=== PATIENT | male | born 1950 | race Caucasian/White ===

== ENCOUNTER 2018-03-09 07:36 | Inpatient (IN) | payer OTHER ==
[~2018-03-09] VITALS: Ht 152.4 cm; Wt 5.0 kg
[2018-03-28] MEDS ORDERED: FORTAMET1000 MG (11:57)
[2018-03-28] MEDS ORDERED: DITROPAN XL10 MG (11:57)
[2018-03-28] MEDS ORDERED: FENOFIBRATE145 MG (11:57)
[2018-03-28] MEDS ORDERED: NEURONTIN800 MG (11:57)
[2018-03-28] MEDS ORDERED: GLIMEPIRIDE4 MG (11:57)
[2018-03-28] MEDS ORDERED: LOSARTAN-HCTZ1 EACH (11:58)
[2018-03-28] MEDS ORDERED: [UNRECOGNIZED DRUG - OTHER] PO (12:01)
[2018-04-04] MEDS ORDERED: MELOXICAM15 MG PO (18:06)
[2018-04-06] MEDS ORDERED: DUI500 PO (17:05)
[2018-04-06] MEDS ORDERED: PERCOCET 5-3251 EACH PO (17:05)
[2018-04-06] MEDS ORDERED: ELIQUIS2.5 MG PO (17:05)
== END 2018-04-06 18:33 | disposition home health service (06) | DRG 470 ==
LOC: SURG 04-04 05:49 → O/R 04-04 05:49 → SURH 04-04 07:00 → SURG 04-04 16:25
PROVIDERS: Orthopaedic Surgery
PROC: 0MNP0ZZ Release Left Knee Bursa and Ligament, Open Approach (ICD-10-PCS; 2018-04-04)
PROC: 0SRD0J9 Replacement of Left Knee Joint with Synthetic Substitute, Cemented, Open Approach (ICD-10-PCS; principal; 2018-04-04 13:00)
DX: M17.12 Unilateral primary osteoarthritis, left knee (principal); D62 Acute posthemorrhagic anemia; I10 Essential (primary) hypertension; E11.9 Type 2 diabetes mellitus without complications; E66.8 Other obesity; M81.0 Age-related osteoporosis without current pathological fracture